=== PATIENT | female | born 1970 ===

== ENCOUNTER → 2017-01-21 | Outpatient (REF) ==
[2017-01-21 15:21] LABS: ARTERIAL BLD GAS O2 SATURATION 97.6 % (92-100); ARTERIAL BLD GAS TCO2 CT 24.5; ARTERIAL BLOOD GAS HCO3 23.1 meq/L (22-26); ARTERIAL BLOOD GAS PO2 110.3 mmHg (80-100); ARTERIAL BLOOD GAS pH 7.33 (7.35-7.45); OXYHEMOGLOBIN 96.6 %
[2017-01-21 15:23] LABS: ALLEN TEST NO; ATS? NO
== END ==
LOC: COL.PUL 15:00
PROVIDERS: Internal Medicine Nephrology
DX: Z01.89 Encounter for other specified special examinations (principal)